=== PATIENT | female | born 1980 | race Caucasian/White ===

== ENCOUNTER 2016-06-30 13:17 | Observation (INO) ==
--- NOTE | 2016-06-30 14:49 | Diag Imaging Result Doc PS360 ---
EXAM: ABDOMEN/PELVIS W/O CONTRAST INDICATION: abd pain TECHNIQUE: Multiple axial slices were obtained through the abdomen and pelvis without administration of IV contrast. COMPARISON: 11/06/2013 FINDINGS: There is suggestion of hepatic steatosis. There are no renal or ureteral stones and there is no hydronephrosis. The urinary bladder is grossly unremarkable. The appendix is normal. There has been a previous hysterectomy. No focal inflammatory changes, free abdominal gas, or free fluid is appreciated. The remainder of the solid viscera of the abdomen and pelvis and the remainder of the GI tract is essentially unremarkable. IMPRESSION: 1.Suggestion of hepatic steatosis. 2.Other incidental/nonacute findings detailed above but no evidence of acute pathology. Electronically signed by Wil Gautam 06/30/2016 2:46 PM
[2016-06-30 15:01] LABS: MANUAL DIFF NEEDED? NO
[2016-06-30 15:06] LABS: BASO% 0.4 % (0.0-0.8); EOS% 2.5 % (0.0-10.0); HEMOGLOBIN 14.7 g/dL (12.0-16.0); IMM GRAN# 0.04 X1000 (0.0-0.04); IMM GRAN% 0.5 % (0.0-0.5); LYMPH# 2.74 X1000 (1.2-3.4); LYMPH% 33.7 % (20.5-51.1); MCH 31.4 PG (27-31); MCHC 35.9 g/dL (33-37); MCV 87.6 FL (81-99); MONO# 0.54 X1000 (0.11-0.59); MONO% 6.6 % (1.7-9.3); MPV 9.8 FL (7.4-10.4); NEUT% 56.3 % (42.2-75.2); PLT 256 X1000 (130-400); RBC 4.68 XMIL (4.2-5.4)
[2016-06-30 15:17] LABS: INR 0.97; PROTIME 10.2 Seconds (9.2-11.7); PTT 25.8 Seconds (22.0-36.0)
[2016-06-30 15:22] LABS: AGAP 13; ALBUMIN 3.9 g/dL (3.5-5.0); ALKALINE PHOSPHATASE 95 U/L (32-104); BUN 10 mg/dL (8-22); CALCIUM 8.9 mg/dL (8.8-10.2); CHLORIDE 94 mmol/L (98-107); COSMO 273; GOT 10 U/L (10-30); GPT 17 U/L (10-36); POTASSIUM 4.1 mmol/L (3.5-5.1); SODIUM 131 mmol/L (136-145); TCO2 24 mmol/L (25-35); TOTAL BILIRUBIN 0.42 mg/dL (0.20-1.00); TOTAL PROTEIN 6.9 g/dL (6.3-8.3)
[2016-06-30 15:28] LABS: URINE MICRO REVIEW NEEDED? NO; URINE SOURCE CLEAN CATCH
[2016-06-30 15:33] LABS: BILIRUBIN URINE NEGATIVE (NEGATIVE); BLOOD URINE NEGATIVE (NEGATIVE); COLOR YELLOW; GLUCOSE URINE >1000 mg/dL (NEGATIVE); LEUKOCYTES URINE MODERATE (NEGATIVE); NITRITE URINE NEGATIVE (NEGATIVE); PROTEIN URINE NEGATIVE (NEGATIVE); SP GRAVITY URINE 1.037; TURBIDITY URINE CLEAR (CLEAR); UR EPITHELIAL CELLS <10 /HPF (<10); URINE BACTERIA 2+ /HPF; URINE RBC <10 /HPF (<10); UROBILINOGEN URINE NORMAL (NORMAL)
[2016-06-30] MEDS: NS + KCL 20 MEQ 1,000 ML IV SCH (15:38)
[2016-06-30] MEDS: ZOSYN 3.375 GM/NS 3.375 GM/50 ML IVPB IV SCH ×2 (15:38→20:43)
[2016-06-30] MEDS: DILAUDID IV PRN (15:40)
[2016-06-30] MEDS: SODIUM CHLORIDE 0.9% INJ SCH (15:48)
[2016-06-30] MEDS: PROTONIX IV SCH (15:48)
--- NOTE | 2016-06-30 17:45 | HISTORY AND PHYSICAL ---
CHIEF COMPLAINT: Abdominal pain. HISTORY OF PRESENT ILLNESS: This is a 35-year-old white female patient with a known case of long- standing diabetes mellitus, poorly controlled, hyperlipidemia, hypothyroidism, gastritis. Patient has not been doing well the last 5-6 days. Patient had diarrhea which she described as loose stool 4-6 times a day, crampy abdominal pain the last 2 days. The patient did have some mucus in the stool. Her cramp was getting worse which was doubling her up. I evaluated the patient in the office yesterday. I did workup and prescribed her Flagyl. Patient did not crop picker the prescription. Her urinalysis did reveal a UTI. Patient's oral intake was poor. The patient called my office today. The patient claims she was getting more sick, significant pain in the abdomen, poor oral intake. The patient does have uncontrolled diabetes. I decided to admit the patient for further care. The patient did have chills but no high-grade fever. The patient did have nausea but no vomiting. She denied any vaginal discharge. No abdominal distention. The patient claims she was feeling miserable. No unusual cough, expectoration, or hemoptysis. No typical chest pain or palpitations. She denied any headache. No runny nose, stuffy nose, sinus drainage. The patient did have urinary frequency, urgency. She denied any dysuria. No leg swelling. The patient did have vague lower abdominal pain. No heat or cold intolerance. No further history available at this time. ALLERGIES: The patient is allergic to epinephrine and azithromycin. HOME MEDICATIONS: Includes Cymbalta, Glucophage, Cozaar, insulin, Lipitor, Synthroid. The patient does not have an updated list. 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 PERSONAL HISTORY: , lives with her . Nonsmoker. Denied alcohol or substance abuse. REVIEW OF SYSTEMS: As per HPI, otherwise unobtainable. FAMILY HISTORY: Significant for father of stroke. He had diabetes and hypertension. Mother with hypertension, NIDDM, colonic polyp with early malignancy. Her brother did suicide and had depression. PHYSICAL EXAMINATION: GENERAL: Young, white female patient, in mild distress. VITAL SIGNS: Blood pressure 122/84, pulse 88, respirations 20, temperature 97.3 degrees. SKIN: Normal turgor. No rash or petechiae. HEENT: Head atraumatic, normocephalic. [place] conjunctivae. Anicteric sclerae. Extraocular muscle movements normal. Fundus cannot be penetrated. Good oral hygiene. No tonsillopharyngeal congestion or exudate. Ears and nose benign. NECK: Supple. No JVD, thyromegaly, or lymphadenopathy. CHEST: Bilateral good air entry present. No rales or rhonchi. CARDIOVASCULAR: S1 and S2 heard. No gallop or thrill. ABDOMEN: Soft, globular. Bowel sounds present. Significant tenderness lower abdomen and some on the left upper quadrant. EXTREMITIES: No cyanosis, clubbing. No acute DVT. 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 Able to move all 4 limbs. LABORATORY DATA: Revealed WBC count 8.14, hemoglobin 14.7, hematocrit 41, platelets 256,000. PT and PTT normal. Sodium 131, potassium 4.1, chloride 94, CO2 was 24, blood sugar 298. Urinalysis: Moderate leukocytes, 10-20 WBC, 2+ bacteria. I did CT scan of the abdomen and pelvis which revealed hepatics steatosis. Otherwise no major pathology. CONSIDERATION: 1. Patient admitted with abdominal pain. Found to have a significant urinary tract infection. I was concerned about colitis because of diarrhea and mucus in the stool. I am going to get stool workup. 2. Uncontrolled diabetes mellitus. 3. Hypertension. 4. Hypothyroidism. 5. Gastritis and reflux disease. PLAN: Admit the patient. IV hydration. Symptomatic treatment. Close observation. Overall plan discussed with the patient. She is in agreement. cc: Sunday Powers MD
[2016-06-30] MEDS: LIPITOR PO SCH (17:49)
[2016-06-30] MEDS: HUMALOG SUBQ SCH ×2 (17:55→22:10)
[2016-06-30] MEDS: NOVOLOG MIX 70/30 SUBQ SCH (17:57)
[2016-07-01] MEDS: ZOFRAN IV PRN ×2 (01:33→15:30)
[2016-07-01] MEDS: ZOSYN 3.375 GM/NS 3.375 GM/50 ML IVPB IV SCH ×3 (01:57→13:20)
[2016-07-01] MEDS: NS + KCL 20 MEQ 1,000 ML IV SCH ×2 (01:59→11:30)
[2016-07-01] MEDS ORDERED: LOVENOX SUBQ SCH (06:00)
[2016-07-01] MEDS: HUMALOG SUBQ SCH ×3 (06:24→16:15)
[2016-07-01] MEDS: NOVOLOG MIX 70/30 SUBQ SCH ×2 (06:24→16:16)
[2016-07-01 06:35] LABS: MANUAL DIFF NEEDED? NO
[2016-07-01 06:44] LABS: BASO% 0.4 % (0.0-0.8); EOS# 0.24 X1000 (0.0-0.7); EOS% 2.6 % (0.0-10.0); HEMATOCRIT 37.8 % (37.0-47.0); HEMOGLOBIN 13.5 g/dL (12.0-16.0); IMM GRAN# 0.04 X1000 (0.0-0.04); IMM GRAN% 0.4 % (0.0-0.5); LYMPH# 3.41 X1000 (1.2-3.4); LYMPH% 36.9 % (20.5-51.1); MCH 31.7 PG (27-31); MCHC 35.7 g/dL (33-37); MCV 88.7 FL (81-99); MONO# 0.55 X1000 (0.11-0.59); MONO% 5.9 % (1.7-9.3); MPV 9.8 FL (7.4-10.4); NEUT% 53.8 % (42.2-75.2); PLT 250 X1000 (130-400); RBC 4.26 XMIL (4.2-5.4)
--- NOTE | 2016-07-01 06:50 | PROGRESS NOTE ---
DATE: 07/01/2016 SUBJECTIVE: Ms. York is doing fair. The patient was complaining of nausea, some pain in the lower abdomen. No high-grade fever or chills. No chest pain. No dysuria. Denied any vaginal discharge. OBJECTIVE: Vital Signs: Her vital signs reviewed. Neck: Supple. No JVD. Lungs: Bilateral good air entry present. CVS: S1 and S2 heard. Abdomen: Soft, globular. Bowel sounds present. Tenderness, left lower quadrant. No guarding or rigidity. Also, tenderness hypogastrium. Extremities: No cyanosis, clubbing. No acute DVT. 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 LAB DATA: Done on admission was reviewed. Urinalysis did reveal UTI. Stool workup negative. CT scan results reviewed. CONSIDERATION: 1. Abdominal pain. 2. Urinary tract infection. 3. Uncontrolled diabetes mellitus. PLAN: I am going to recheck blood work today. Continue IV hydration, IV pain medicine, symptomatic treatment, close observation. Overall plan discussed with the patient and she is in agreement. cc: Sunday Powers MD
[2016-07-01 07:05] LABS: AGAP 14; ALBUMIN 3.4 g/dL (3.5-5.0); ALKALINE PHOSPHATASE 72 U/L (32-104); BUN 8 mg/dL (8-22); CALCIUM 8.2 mg/dL (8.8-10.2); CHLORIDE 101 mmol/L (98-107); COSMO 275; GOT 13 U/L (10-30); GPT 18 U/L (10-36); MAGNESIUM 1.5 mg/dL (1.5-2.7); POTASSIUM 3.9 mmol/L (3.5-5.1); SODIUM 136 mmol/L (136-145); TCO2 21 mmol/L (25-35); TOTAL BILIRUBIN 0.55 mg/dL (0.20-1.00); TOTAL PROTEIN 6.5 g/dL (6.3-8.3)
[2016-07-01] MEDS: LIPITOR PO SCH (08:36)
[2016-07-01] MEDS ORDERED: CYMBALTA PO SCH (09:00)
[2016-07-01] MEDS ORDERED: SYNTHROID PO SCH (09:00)
[2016-07-01] MEDS ORDERED: COZAAR PO SCH (09:00)
[2016-07-01] MEDS: SODIUM CHLORIDE 0.9% INJ SCH (13:20)
[2016-07-01] MEDS: PROTONIX IV SCH (13:20)
[2016-07-01] MEDS: DILAUDID IV PRN ×2 (13:25→16:17)
[2016-07-01 14:33] VITALS: BP 114/70
[2016-07-01] MEDS ORDERED: INSULIN PEN NEEDLES ONE (16:48)
--- NOTE | 2016-07-01 18:10 | PROGRESS NOTE ---
DATE: 07/01/2016 SUBJECTIVE: Ms. York is doing better. Her abdominal pain, nausea, and diarrhea improved. No fever or chills. The patient is ambulating well. She is tolerating food well. No high-grade fever or chills. I did a stool workup which was negative. Urine culture is still pending. CT scan results reviewed and discussed with the patient. OBJECTIVE: Vital Signs: Vital signs noted. Lungs: Bilateral good air entry present. Cardiovascular: S1 and S2 heard. Abdomen: Soft, globular. Bowel sounds present. Central Nervous System: Alert, awake, able to move all 4 limbs. ASSESSMENT AND PLAN: Overall, patient is doing better. Eager to go home. Overall discharge plan discussed with the patient and . Monitor Accu-Chek. Proper control of diabetes. Follow up with me in 1 week. I gave her [place] for pain, Macrobid for urinary tract infection, Reglan for nausea. In case of more distress, call us back or go to the emergency room. Overall discharge condition satisfactory. cc: Sunday Powers MD
== END 2016-07-01 18:13 | disposition home or self-care (01) ==
LOC: DIRADM → 3N 13:17
PROVIDERS: ADMIT Internal Medicine; ATTEND Internal Medicine